=== PATIENT | male | born 1980 | race Caucasian/White ===

== ENCOUNTER 2022-03-16 10:25 | Outpatient (CLI) | payer OTHER | END 2022-03-16 23:59 | disposition home or self-care (01) | LOC: RAD 10:25 | PROVIDERS: ATTEND Chiropractor | DX: M47.816 Spondylosis without myelopathy or radiculopathy, lumbar region (principal); M25.78 Osteophyte, vertebrae; M13.80 Other specified arthritis, unspecified site | CPT/HCPCS: 72040; 72070; 72100; 72170; 73030; 73070; 73560; 73600 ==